=== PATIENT | female | born 1985 | race Native Hawaiian/Other Pacific Islander ===

== ENCOUNTER 2018-05-02 13:12 | Emergency (ER) | payer MEDICAID ==
--- NOTE | 2018-05-02 16:22 | ED Physician Documentation ---
PD HPI FEMALE - Stated complaint Stated Complaint: FEMALE - Chief complaint Chief Complaint: General - History obtained from History obtained from: Patient - History of Present Illness Timing - onset: Yesterday Timing - details: Abrupt onset, Still present (feeling of tenderness right upper labia, worse with palpation and with sitting. Has had cyst/infection there reviously. No noted trauma to the area. No drainage.) Associated symptoms: Genital sore/lesion (feeling of local tenderness and swelling inner labia.). No: Fever Contributing factors: No: Exposed to STD Similar symptoms before: Diagnosis (labial cyst/abscess with I&D years ago) Recently seen: Not recently seen Review of Systems Constitutional: denies: Fever, Chills, Myalgias GI: denies: Abdominal Pain, Nausea, Vomiting, Diarrhea PD PAST MEDICAL HISTORY - Past Medical History : None - Present Medications Home Medications: Ambulatory Orders Medication Instructions Recorded Confirmed Doxycycline Monohydrate 100 mg PO BID #14 tablet 05/02/18 Fluconazole [Diflucan] 150 mg PO ONCE #1 tablet 05/02/18 Naproxen 375 mg PO BID #20 tablet 05/02/18 - Allergies Allergies/Adverse Reactions: Allergies Allergy/AdvReac Type Severity Reaction Status Date / Time No Known Drug Allergies Allergy Verified 05/02/18 13:54 PD ED PE NORMAL - Vitals Vital signs reviewed: Yes - General General: Alert and oriented X 3, No acute distress, Well developed/nourished - HEENT HEENT: Pharynx benign - Neck Neck: Supple, no meningeal sign - Cardiac Cardiac: RRR, No murmur - Respiratory Respiratory: Clear bilaterally - Abdomen Abdomen: Soft, Non tender - 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 There is some local tenderness and swelling, without need for incision (not focally fluctuant)) - Back Back: No CVA TTP - Derm Derm: Normal color, Warm and dry Results - Vitals Vitals: Vital Signs - 24 hr 05/02/18 05/02/18 13:49 17:26 Temperature 37 C Heart Rate 78 70 Respiratory 20 18 Rate Blood Pressure 109/78 113/74 O2 Saturation 100 99 Oxygen O2 Source Room air - Labs Labs: Laboratory Tests 05/02/18 16:30 Urine Color YELLOW Urine Clarity CLEAR Urine pH 6.0 Ur Specific [place] 1.025 Urine Protein NEGATIVE Urine Glucose (UA) NEGATIVE Urine Ketones NEGATIVE Urine Occult Blood NEGATIVE Urine Nitrite NEGATIVE Urine Bilirubin NEGATIVE Urine Urobilinogen 0.2 (NORMAL) Ur Leukocyte Esterase NEGATIVE Ur Microscopic Review NOT INDICATED Urine Culture Comments NOT INDICATED Urine HCG, Qual NEGATIVE PD MEDICAL DECISION MAKING - Sepsis Event Vital Signs: Vital Signs - 24 hr 05/02/18 05/02/18 13:49 17:26 Temperature 37 C Heart Rate 78 70 Respiratory 20 18 Rate Blood Pressure 109/78 113/74 O2 Saturation 100 99 Oxygen O2 Source Room air Departure - Departure Disposition: Home, Self Care Clinical Impression: Abscess of right genital labia Condition: Stable Record reviewed to determine appropriate education?: Yes Instructions: Bartholin Cyst Abscess Follow-Up: [facility] [Provider Group] Prescriptions: Doxycycline Monohydrate 100 mg PO BID #14 tablet Fluconazole [Diflucan] 150 mg PO ONCE #1 tablet Naproxen 375 mg PO BID #20 tablet Comments: Your urine test appears normal. He can stop the antibiotic for the bladder infection as that appears cleared. Change to doxycycline antibiotic for the labial infection. It does not appear advanced enough to need incision. Use some warm moist towels to the area periodically. Use an anti-inflammatory naproxen twice daily for a week. The antibiotics can trigger a yeast infection at times so use a single dose Diflucan antifungal tablet in 2 or 3 days. Recheck if not improving over the next few days. Follow-up with gynecology if persistent symptoms. Discharge Date/Time: 05/02/18 17:26
[2018-05-02 16:46] LABS: BILIRUBIN,URINE NEGATIVE (NEGATIVE); GLUCOSE, URINE (UA) NEGATIVE (NEGATIVE); KETONES,URINE (UA) NEGATIVE (NEGATIVE); LEUKOCYTE ESTERASE, URINE NEGATIVE (NEGATIVE); NITRITE,URINE NEGATIVE (NEGATIVE); OCCULT BLOOD,URINE NEGATIVE (NEGATIVE); PROTEIN,URINE NEGATIVE (NEGATIVE); UROBILINOGEN,URINE 0.2 (NORMAL) E.U./dL (NORMAL)
[2018-05-02 16:48] LABS: CLARITY,URINE CLEAR (CLEAR); HCG UR QUAL NEGATIVE
[2018-05-02] MEDS ORDERED: NAPROXEN 250 MG TABLET PO STA (17:15)
[2018-05-02] MEDS ORDERED: DOXYCYCLINE 100 MG TABLET PO STA (17:15)
[2018-05-02 17:27] VITALS: BP 113/74
== END 2018-05-02 17:26 | disposition home or self-care (01) ==
LOC: ED 13:12
DX: N76.4 Abscess of vulva (principal)
CPT/HCPCS: 81003; 81025; 99283; A9270; 81001; 87086

== ENCOUNTER 2018-05-16 16:49 | Emergency (ER) | payer MEDICAID ==
--- NOTE | 2018-05-16 18:14 | ED Physician Documentation ---
History of Present Illness - Stated complaint Stated Complaint: BK PX/ABD PX - Chief complaint Chief Complaint: Back Pain - History obtained from History obtained from: Patient - History of Present Illness Timing: How many days ago (2) Pain level max: 4 Pain level now: 2 Improved by: nothing Worsened by: nothing - Additonal information Additional information: Patient is a 32-year-old female who presents to the emergency department complaining of upper and lower back pain intermittently for the past 2 days. Nothing makes it better or worse. She states that she feels like her stomach is "gurgly". She has been on antibiotics recently for a UTI and labial infection. No fevers. No vomiting. No dysuria. No IV drug use. No recent spinal instrumentation. Patient states that she believes she may be lactose intolerant as she ate ice cream and her stomach became more "gurgly" Review of Systems Ten Systems: 10 systems reviewed and negative Constitutional: denies: Fever, Chills Ears: denies: Ear pain Nose: denies: Rhinorrhea / runny nose, Congestion Cardiac: denies: Chest pain / pressure Respiratory: denies: Cough : denies: Now EGA Skin: denies: Rash Musculoskeletal: denies: Neck pain, Back pain Neurologic: denies: Headache PD PAST MEDICAL HISTORY - Past Medical History Past Medical History: No : None - Past Surgical History Past Surgical History: No - Present Medications Home Medications: Ambulatory Orders Medication Instructions Recorded Confirmed No Known Home Medications [No 05/16/18 05/16/18 Known Home Medications] - Allergies Allergies/Adverse Reactions: Allergies Allergy/AdvReac Type Severity Reaction Status Date / Time No Known Drug Allergies Allergy Verified 05/16/18 16:57 - Living Situation Living Arrangement: reports: At home - Social History Does the pt smoke?: No Smoking Status: Former smoker Does the pt drink ETOH?: No Does the pt have substance abuse?: No - Family History Family history: reports: Non contributory - Immunizations Immunizations are current?: Yes - POLST Patient has POLST: No PD ED PE NORMAL - Vitals Vital signs reviewed: Yes - General General: Alert and oriented X 3, No acute distress, Well developed/nourished - HEENT HEENT: PERRL, Moist mucous membranes - Neck Neck: Supple, no meningeal sign, No bony TTP - Cardiac Cardiac: RRR, Strong equal pulses - Respiratory Respiratory: No respiratory distress, Clear bilaterally - Abdomen Abdomen: Normal bowel sounds, Soft, Non tender, Non distended - Back Back: No CVA TTP, No spinal TTP - Derm Derm: Warm and dry, No rash - Extremities Extremities: No edema, No calf tenderness / cord, Other (normal bilateral lower extremity patellar and ankle jerk reflexes. Normal great toe extension bilaterally. no saddle anesthesia) - Neuro Neuro: Alert and oriented X 3, charrer 2-12 intact, No motor deficit, No sensory deficit, Normal speech - Psych Psych: Normal mood, Normal affect Results - Vitals Vitals: Vital Signs - 24 hr 05/16/18 05/16/18 16:55 19:05 Temperature 36.1 C L 36.2 C L Heart Rate 88 86 Respiratory 16 16 Rate Blood Pressure 110/79 127/85 H O2 Saturation 100 100 Oxygen O2 Source Room air - Labs Labs: Laboratory Tests 05/16/18 05/16/18 05/16/18 18:05 18:05 18:25 WBC 7.2 RBC 4.55 Hgb 10.8 L Hct 33.5 L MCV 73.7 L MCH 23.7 L MCHC 32.1 RDW 17.9 H Plt Count 552 H MPV 7.5 L Neut # (Auto) 4.1 Lymph # (Auto) 2.1 [place] # (Auto) 0.6 Eos # (Auto) 0.3 Baso # (Auto) 0.1 Absolute Nucleated RBC 0.00 Nucleated RBC % 0.0 Sodium 138 Potassium 2.8 L Chloride 103 Carbon Dioxide 26 Anion Gap 9.0 BUN 13 Creatinine 0.7 Estimated GFR (MDRD) 96 Glucose 88 Calcium 9.4 Total Bilirubin 0.6 AST 22 ALT 12 Alkaline Phosphatase 60 Total Protein 8.7 H Albumin 4.3 Globulin 4.4 H Albumin/Globulin Ratio 1.0 Lipase 37 Urine Color YELLOW Urine Clarity CLEAR Urine pH 6.0 Ur Specific [place] 1.025 Urine Protein NEGATIVE Urine Glucose (UA) NEGATIVE Urine Ketones NEGATIVE Urine Occult Blood TRACE-INTA Urine Nitrite NEGATIVE Urine Bilirubin NEGATIVE Urine Urobilinogen 0.2 (NORMAL) Ur Leukocyte Esterase NEGATIVE Ur Microscopic Review NOT INDICATED Urine Culture Comments NOT INDICATED Urine HCG, Qual NEGATIVE PD MEDICAL DECISION MAKING - ED course Complexity details: reviewed old records (Prior ED visit), reviewed results, re- evaluated patient, considered differential, d/w patient ED course: Patient is a 32-year-old female who presents to the emergency department with 2 days of upper and lower back pain as well as her stomach feeling "gurgly". She is found to be hypokalemic and this was replaced. Does not appear in any distress in the emergency department. No focal neurological deficits. Ambulating with a normal gait. No other acute laboratory abnormalities. Abdomen is soft, nontender nondistended on serial exam. We will continue supportive care and follow-up closely with her doctor. She is also found to be mildly anemic, likely iron deficiency, will have her follow-up with her doctor for further testing as well. Patient counseled regarding signs and symptoms for which I believe and urgent re-evaluation would be necessary. Patient with good understanding of and agreement to plan and is comfortable going home at this time This document was made in part using voice recognition software. While efforts are made to proofread this document, sound alike and grammatical errors may occur. - Sepsis Event Vital Signs: Vital Signs - 24 hr 05/16/18 05/16/18 16:55 19:05 Temperature 36.1 C L 36.2 C L Heart Rate 88 86 Respiratory 16 16 Rate Blood Pressure 110/79 127/85 H O2 Saturation 100 100 Oxygen O2 Source Room air Departure - Departure Disposition: 01 Home, Self Care Clinical Impression: Hypokalemia Anemia Qualifiers: Anemia type: unspecified type Qualified Code(s): D64.9 - Anemia, unspecified Condition: Good Instructions: ED Anemia Type Not Specified, ED Potassium Deficiency Follow-Up: your,doctor in 1 week [Other] Comments: Return if you worsen. You need to follow-up with your doctor for further evaluation of your anemia and low potassium. Your other laboratory testing is normal Discharge Date/Time: 05/16/18 19:06
[2018-05-16 18:15] LABS: BASOPHILS # (AUTO) 0.1 10^3/uL (0.0-0.1); BASOPHILS % (AUTO) 1.2 %; EOSINOPHILS # (AUTO) 0.3 10^3/uL (0.0-0.7); HGB - HEMOGLOBIN 10.8 g/dL (12.0-16.0); LYMPHOCYTES # (AUTO) 2.1 10^3/uL (1.5-3.5); LYMPHOCYTES % (AUTO) 29.3 %; MEAN CORPUSCULAR HEMOGLOBIN 23.7 pg (27.0-31.0); MEAN CORPUSCULAR HGB CONC 32.1 g/dL (32.0-36.0); MEAN CORPUSCULAR VOLUME 73.7 fL (81.0-99.0); MEAN PLATELET VOLUME 7.5 fL (7.9-10.8); MONOCYTES # (AUTO) 0.6 10^3/uL (0.0-1.0); MONOCYTES % (AUTO) 8.3 %; NEUTROPHILS # (AUTO) 4.1 10^3/uL (1.5-6.6); NEUTROPHILS % (AUTO) 57.2 %; PLT - PLATELET COUNT 552 10^3/uL (130-450); RED BLOOD COUNT 4.55 10^6/uL (4.20-5.40); RED CELL DISTRIBUTION WIDTH 17.9 % (12.0-15.0); WHITE BLOOD COUNT 7.2 x10^3/uL (4.8-10.8)
[2018-05-16 18:25] LABS: ALBUMIN 4.3 g/dL (3.2-5.5); BILIRUBIN,TOTAL 0.6 mg/dL (0.2-1.0); CALCIUM 9.4 mg/dL (8.5-10.3); CREATININE 0.7 mg/dL (0.4-1.0); TOTAL PROTEIN 8.7 g/dL (6.7-8.2)
[2018-05-16] MEDS ORDERED: POTASSIUM BICARB 25 MEQ TABLET PO STA (18:37)
[2018-05-16 18:48] LABS: BILIRUBIN,URINE NEGATIVE (NEGATIVE); GLUCOSE, URINE (UA) NEGATIVE (NEGATIVE); KETONES,URINE (UA) NEGATIVE (NEGATIVE); LEUKOCYTE ESTERASE, URINE NEGATIVE (NEGATIVE); NITRITE,URINE NEGATIVE (NEGATIVE); OCCULT BLOOD,URINE TRACE-INTA (NEGATIVE); PROTEIN,URINE NEGATIVE (NEGATIVE); UROBILINOGEN,URINE 0.2 (NORMAL) E.U./dL (NORMAL)
[2018-05-16 18:49] LABS: CLARITY,URINE CLEAR (CLEAR)
[2018-05-16 18:51] LABS: HCG UR QUAL NEGATIVE
[2018-05-16 19:06] VITALS: BP 127/85
== END 2018-05-16 19:06 | disposition home or self-care (01) ==
LOC: ED 16:49
DX: E87.6 Hypokalemia (principal); D64.9 Anemia, unspecified; Z87.891 Personal history of nicotine dependence
CPT/HCPCS: 36415; 80053; 81003; 81025; 83690; 85025; 99283; A9270; 81001; 87086

== ENCOUNTER 2018-07-25 17:38 | Emergency (ER) | payer MEDICAID ==
[2018-07-25 18:48] LABS: BILIRUBIN,URINE NEGATIVE (NEGATIVE); GLUCOSE, URINE (UA) NEGATIVE (NEGATIVE); KETONES,URINE (UA) NEGATIVE (NEGATIVE); LEUKOCYTE ESTERASE, URINE NEGATIVE (NEGATIVE); NITRITE,URINE NEGATIVE (NEGATIVE); OCCULT BLOOD,URINE NEGATIVE (NEGATIVE); PROTEIN,URINE NEGATIVE (NEGATIVE); UROBILINOGEN,URINE 0.2 (NORMAL) E.U./dL (NORMAL)
[2018-07-25 18:51] LABS: CLARITY,URINE CLEAR (CLEAR); HCG UR QUAL NEGATIVE
--- NOTE | 2018-07-25 20:31 | ED Physician Documentation ---
History of Present Illness - Stated complaint Stated Complaint: STOMACH MAKING NOISE - Chief complaint Chief Complaint: General - History obtained from History obtained from: Patient - History of Present Illness Timing: Other (3 months) Pain level max: 0 Pain level now: 0 Improved by: nothing Worsened by: no exacerbating factors - Additonal information Additional information: c/o 3 months of "stomach is making noises" (per patient). she denies pain, nausea, vomiting, diarrhea, constipation. She has no other signs or symptoms except for borborygmi. She says she saw a doctor in [place] for this, was prescribed a medication but she cannot remember what it was. She came [facility] because she read on line that this could be a sign of cancer. Review of Systems Constitutional: denies: Fever Cardiac: reports: Reviewed and negative Respiratory: reports: Reviewed and negative GI: denies: Abdominal Pain, Abdominal Swelling, Nausea, Vomiting, Constipation, Diarrhea, Hematemesis, Bloody / black stool : denies: Dysuria, Frequency PD PAST MEDICAL HISTORY - Past Medical History : None - Past Surgical History Past Surgical History: No - Present Medications Home Medications: Ambulatory Orders Medication Instructions Recorded Confirmed Dicyclomine [Bentyl] 10 mg PO TID PRN #14 capsule 07/25/18 - Allergies Allergies/Adverse Reactions: Allergies Allergy/AdvReac Type Severity Reaction Status Date / Time No Known Drug Allergies Allergy Verified 07/25/18 17:45 - Social History Does the pt smoke?: No Smoking Status: Former smoker Does the pt drink ETOH?: No Does the pt have substance abuse?: No - Immunizations Immunizations are current?: Yes - POLST Patient has POLST: No PD ED PE NORMAL - Vitals Vital signs reviewed: Yes - General General: Alert and oriented X 3, No acute distress, Well developed/nourished - Abdomen Abdomen: Normal bowel sounds, Soft, Non tender, Non distended, No organomegaly - Back Back: No CVA TTP Results - Vitals Vitals: Vital Signs - 24 hr 07/25/18 07/25/18 17:41 20:43 Temperature 36.5 C 37.1 C Heart Rate 88 86 Respiratory 14 18 Rate Blood Pressure 114/73 111/74 O2 Saturation 98 100 Oxygen O2 Source Room air - Labs Labs: Laboratory Tests 07/25/18 07/25/18 18:38 18:38 Urine Color YELLOW Urine Clarity CLEAR Urine pH 8.0 H Ur Specific [place] 1.020 1.020 Urine Protein NEGATIVE Urine Glucose (UA) NEGATIVE Urine Ketones NEGATIVE Urine Occult Blood NEGATIVE Urine Nitrite NEGATIVE Urine Bilirubin NEGATIVE Urine Urobilinogen 0.2 (NORMAL) Ur Leukocyte Esterase NEGATIVE Ur Microscopic Review NOT INDICATED Urine Culture Comments NOT INDICATED Urine HCG, Qual NEGATIVE PD MEDICAL DECISION MAKING - ED course Complexity details: considered differential, d/w patient ED course: benign abdominal exam. I explained that this would be an unusual way for cancer to manifest, and that without other signs or symptoms (such as, but not limited to, pain, fever, tenderness, diarrhea, constipation, nausea, vomiting, blood in stool), emergent testing is not indicated at this time for this symptom she is having. I encouraged her to follow up with her primary care provider to discuss this problem, and to return if worse in any way. Departure - Departure Disposition: 01 Home, Self Care Clinical Impression: Borborygmi Condition: Good Instructions: ED Symptoms No Dx Follow-Up: [facility] [Provider Group] [facility] [Provider Group] Prescriptions: Dicyclomine [Bentyl] 10 mg PO TID PRN #14 capsule PRN Reason: Gas Comments: Please follow up with your primary care provider to discuss these symptoms. At this time, your symptoms do not indicate emergent testing. You can try simethicone to see if this helps with the symptoms (this is in many over -the-counter medications such as Gas-X). If the simethicone does not help, you can also try the prescribed medication Bentyl. Discharge Date/Time: 07/25/18 20:56
[2018-07-25] MEDS ORDERED: SIMETHICONE CHEW 80 MG TABLET PO STA (20:40)
[2018-07-25 20:44] VITALS: BP 111/74
== END 2018-07-25 20:56 | disposition home or self-care (01) ==
LOC: ED 17:38
DX: R19.15 Other abnormal bowel sounds (principal); Z87.891 Personal history of nicotine dependence
CPT/HCPCS: 81003; 81025; 99281; 99283; A9270; 81001; 87086